=== PATIENT | female | born 1960 | race Caucasian/White ===

== ENCOUNTER 2016-07-12 18:50 | Emergency (ER) | payer OTHER ==
[2016-07-12 19:15] VITALS: BP 152/68; PULSE 84; TEMP 98.7; BMI 54.9
--- NOTE | 2016-07-12 19:55 | PDOC ---
History of Present Illness - General Chief Complaint: Eye Problem Stated Complaint: RT EYE PAIN Time Seen by Provider: 07/12/16 19:16 History Source: Patient Exam Limitations: No Limitations - History of Present Illness Initial Comments: 07/12/16 19:50 56-year-old female presents to the ED with complaints of right eye discharge. Patient states went to synagogue this morning was near some with pinkeye and states by this evening she started to have yellowish discharge with itching burning sensation. Patient denies any visual changes, history of cataracts, or recent eye injury. Patient does state diabetes but states her sugars controlled with the last BGM being 154 this morning. Timing/Duration: 1-3 hours Severity: mild Associated Symptoms: reports: denies symptoms Past History - Past Medical History Allergies/Adverse Reactions: Allergies Allergy/AdvReac Type Severity Reaction Status Date / Time Penicillins Allergy Mild Hives Verified 07/12/16 19:14 Home Medications: Ambulatory Orders Anastrozole [Arimidex -] 1 mg PO DAILY 07/08/12 Aripiprazole [Abilify -] mg PO DAILY 07/08/12 Aspirin [ASA -] 81 mg PO DAILY 07/08/12 Atorvastatin Ca [Lipitor] 20 mg PO HS 07/08/12 Clonazepam [KlonoPIN -] mg PO DAILY 07/08/12 Levothyroxine [Synthroid -] 100 mcg PO DAILY 07/08/12 Lisinopril [Prinivil] 5 mg PO DAILY 07/08/12 Metformin HCl [Glucophage -] 500 mg PO BID 07/08/12 Multivitamin [Multivitamins] 1 each PO DAILY 07/08/12 Omeprazole Magnesium [Prilosec (OTC)] 20 mg PO DAILY 07/08/12 Topiramate [Topamax] 200 mg PO BID 07/08/12 Vitamin B Complex 1 each PO DAILY 07/08/12 Wellbutrin 07/08/12 Amoxicillin/Potassium Clav [Augmentin 500-125 Tablet] 1 each PO TID #21 tablet 01/06/14 Asthma: Yes Cancer: Yes (BREAST WITH LUMPECTOMY) Diabetes: Yes Psychiatric Problems: Yes (depression PTSD) Thyroid Disease: Yes - Psycho/Social/Smoking Cessation Hx Anxiety: Yes Suicidal Ideation: No Smoking Status: Yes Smoking History: Never smoked Have you smoked in the past 12 months: No Number of Cigarettes Smoked Daily: 0 Information on smoking cessation initiated: No Hx Alcohol Use: No Drug/Substance Use Hx: No Substance Use Type: None Patient Lives Alone: No Lives with/in: spouse/SO Review of Systems - Review of Systems Able to Perform ROS?: Yes Constitutional: No: Symptoms Reported HEENTM: Yes: Eye Pain (discharge) Respiratory: No: Symptoms reported Integumentary: No: Symptoms Reported *Physical Exam - Vital Signs Last Vital Signs Temp Pulse Resp BP Pulse Ox 98.7 F 84 18 152/68 100 07/12/16 19:12 07/12/16 19:12 07/12/16 19:12 07/12/16 19:12 07/12/16 19:12 - Physical Exam General Appearance: Yes: Nourished, Appropriately Dressed. No: Apparent Distress HEENT: positive: Other (right eye discharge with erythema. ) Integumentary: positive: Normal Color, Warm, Moist Neurologic: positive: Motor Strength 5/5 (ambulatory) Medical Decision Making - Medical Decision Making 07/12/16 19:56 Pt with rt eye discharge and pain. Pt with conjunctivitis. Pt discharged with erythromycin oitment *DC/Admit/Observation/Transfer Diagnosis at time of Disposition: Conjunctivitis Qualifiers: Conjunctivitis type: acute Acute conjunctivitis type: bacterial Laterality: right Qualified Code(s): H10.31 - Unspecified acute conjunctivitis, right eye - Discharge Dispostion Disposition: HOME Condition at time of disposition: Good - Patient Instructions Printed Discharge Instructions: DI for Conjunctivitis Additional Instructions: These wash hands thoroughly change linens daily, and change towels daily. Use prescription ointment as prescribed. May use in both eyes if you notice symptoms in the left eye also..
== END 2016-07-12 19:59 | disposition home or self-care (01) ==
LOC: JERFT 18:50
DX: H10.31 Unspecified acute conjunctivitis, right eye (principal); B96.89 Other specified bacterial agents as the cause of diseases classified elsewhere; E11.9 Type 2 diabetes mellitus without complications; E03.9 Hypothyroidism, unspecified; J45.909 Unspecified asthma, uncomplicated; F43.10 Post-traumatic stress disorder, unspecified; Z85.3 Personal history of malignant neoplasm of breast
CPT/HCPCS: 99281-25

== ENCOUNTER → 2019-02-03 | Day surgery (SDC) | payer OTHER ==
--- NOTE | 2019-02-06 11:07 | OP ---
DATE OF OPERATION: 02/03/2019 PREOPERATIVE DIAGNOSIS: Left breast mass 10-11 o'clock, 4-6 cm from the nipple. POSTOPERATIVE DIAGNOSIS: Left breast mass 10-11 o'clock, 4-6 cm from the nipple. PROCEDURE: Left ultrasound-guided core biopsy with clip placement. ANESTHESIA: Local. ATTENDING SURGEON: Migdalia Inman MD ESTIMATED BLOOD LOSS: Minimal. COMPLICATIONS: None. DESCRIPTION OF PROCEDURE: Patient was made aware of the risks and benefits of the procedure. She was placed in a supine position. Under sterile conditions with 1% lidocaine for local anesthesia, a small alessandro was made in the skin. Using a 13-gauge suction biopsy device under ultrasound guidance, multiple cores were obtained and submitted to Pathology. Likewise, under ultrasound guidance, a U-shaped clip was placed into the biopsy region. Well tolerated by patient. Steri-Strips and a sterile bandage was applied. We will contact her with results. MIGDALIA INMAN M.D. [id number]
--- NOTE | 2019-02-06 14:27 | PATH ---
Surgical Pathology Report Patient Name: CAMACHO DOCKERY [facility]. Rec. #: [id number] /Age/Gender: 1960 (Age: 58) / F Account: [id number] Location: [facility] Taken: 02/03/2019 Received: 02/03/2019 Reported: 02/06/2019 Physicians: Migdalia Inman M.D. Specimen(s) Received LEFT BREAST CORE BIOPSY 02-17 N4-6 Clinical History Palpable mass Ultrasound findings: Probable benign Final Diagnosis BREAST, LEFT, 10-11:00, 4-6 CM FN, CORE BIOPSY: FIBROADIPOSE TISSUE SHOWING FAT NECROSIS AND DENSE HYALINIZING FIBROSIS WITH ASSOCIATED CALCIFICATIONS. Electronically Signed Ashleigh Griffiths M.D. Gross Description Received in formalin labeled "left breast 10-11:00, 4-6 cm fn" are multiple jean-yellow, cylindrical portions of fibroadipose tissue ranging from 0.4-0.5 cm in length and averaging 0.2 cm diameter, and 1 x 0.5 x 0.3 cm in aggregate. The specimens are submitted in toto in one cassette. Time to formalin fixation: <1 minute Total formalin fixation time: ~ 9 hours. BISHOP/02/03/2019 darya/02/03/2019
== END | disposition home or self-care (01) ==
LOC: FRADUS-SUR 12:03
PROVIDERS: ATTEND Surgery Surgical Oncology
PROC: 0HBU3ZX Excision of Left Breast, Percutaneous Approach, Diagnostic (ICD-10-PCS; principal; 2019-02-03)
DX: N60.22 Fibroadenosis of left breast (principal); N64.89 Other specified disorders of breast; N63.22 Unspecified lump in the left breast, upper inner quadrant; Z85.3 Personal history of malignant neoplasm of breast
CPT/HCPCS: 19083; 87899; 88305-TC; A4648